=== PATIENT | male | born 1950 | race Caucasian/White ===

== ENCOUNTER 2016-12-11 19:31 | Emergency (ER) | payer OTHER | END 2016-12-11 22:16 | disposition home or self-care (01) | LOC: D.ER 19:31 | DX: J44.1 Chronic obstructive pulmonary disease with (acute) exacerbation (principal); F17.200 Nicotine dependence, unspecified, uncomplicated; J45.909 Unspecified asthma, uncomplicated ==

== ENCOUNTER 2016-12-30 07:19 | Emergency (ER) | payer OTHER ==
[2013-01-16 15:27] VITALS: BMI 18.5
[2016-12-30 08:02] LABS: BASOPHILS 0.2 % (0-2); EOSINOPHILS 0.2 % (0-7); HEMATOCRIT 43.1 % (42.0-54.0); HEMOGLOBIN 14.4 g/dL (13.5-17.5); IMMATURE GRANULOCYTES 0.2 % (0-5); LYMPHOCYTES 6.2 % (15-50); MCH 32.1 pg (26.0-34.0); MCHC 33.4 g/dL (31.0-37.0); NEUTROPHILS 89.2 % (40-80); RBC 4.49 10x6/uL (4.20-6.10); RDW 13.3 % (11.5-14.5); WBC 10.3 10x3/uL (4.8-10.8)
[2016-12-30 08:05] LABS: PLATELET COUNT 226 10x3/uL (130-400)
[2016-12-30 08:15] LABS: ALBUMIN 3.4 g/dL (3.4-5.0); ALKALINE PHOSPHATASE 97 U/L (46-116); ALT (SGPT) 37 U/L (10-68); CALC OSMOLALITY 285 mosm/kg (275-300); CARBON DIOXIDE 35.7 mmol/L (21.0-32.0); CHLORIDE - SERUM 100 mmol/L (98-107); CREATININE - SERUM 0.6 mg/dL (0.6-1.3); GLUCOSE 255 mg/dL (74-106); POTASSIUM - SERUM 4.2 mmol/L (3.5-5.1); PROTEIN - SERUM 6.1 g/dL (6.4-8.2); SODIUM 138 mmol/L (136-145); UREA NITROGEN 14 mg/dL (7-18); eGFR NON AFRICAN AMERICAN > 90 mL/min (90-120)
== END 2016-12-30 15:50 | disposition short-term general hospital (02) ==
LOC: D.ER 07:19
PROVIDERS: Family Medicine
DX: J44.1 Chronic obstructive pulmonary disease with (acute) exacerbation (principal); R09.02 Hypoxemia; J96.00 Acute respiratory failure, unspecified whether with hypoxia or hypercapnia; I44.7 Left bundle-branch block, unspecified

== ENCOUNTER 2017-01-08 10:18 | Emergency (ER) | payer OTHER ==
[2013-01-16 15:27] VITALS: BMI 18.5
[2017-01-08 11:07] LABS: BASOPHILS 0.1 % (0-2); EOSINOPHILS 1.2 % (0-7); HEMATOCRIT 40.6 % (42.0-54.0); HEMOGLOBIN 13.7 g/dL (13.5-17.5); IMMATURE GRANULOCYTES 0.4 % (0-5); LYMPHOCYTES 10.3 % (15-50); MCH 32.4 pg (26.0-34.0); MCHC 33.7 g/dL (31.0-37.0); MONOCYTES 10.3 % (2-11); NEUTROPHILS 77.7 % (40-80); PLATELET COUNT 237 10x3/uL (130-400); RBC 4.23 10x6/uL (4.20-6.10); RDW 12.5 % (11.5-14.5); WBC 7.5 10x3/uL (4.8-10.8)
[2017-01-08 11:26] LABS: ALBUMIN 3.1 g/dL (3.4-5.0); ALKALINE PHOSPHATASE 92 U/L (46-116); ALT (SGPT) 34 U/L (10-68); BILIRUBIN - TOTAL 0.72 mg/dL (0.2-1.3); CALC OSMOLALITY 282 mosm/kg (275-300); CALCIUM 8.7 mg/dL (8.5-10.1); CARBON DIOXIDE 37.9 mmol/L (21.0-32.0); CHLORIDE - SERUM 96 mmol/L (98-107); CREATININE - SERUM 0.6 mg/dL (0.6-1.3); POTASSIUM - SERUM 4.4 mmol/L (3.5-5.1); PRO BNP 341 pg/mL (0-125); PROTEIN - SERUM 5.9 g/dL (6.4-8.2); SODIUM 133 mmol/L (136-145); TROPONIN-I 0.052 ng/mL (0.000-0.060); UREA NITROGEN 11 mg/dL (7-18); eGFR NON AFRICAN AMERICAN > 90 mL/min (90-120)
[2017-01-08 11:32] LABS: GLUCOSE 420 mg/dL (74-106)
== END 2017-01-08 14:15 | disposition home or self-care (01) ==
LOC: D.ER 10:18
PROVIDERS: Emergency Medicine
DX: J44.1 Chronic obstructive pulmonary disease with (acute) exacerbation (principal); F17.200 Nicotine dependence, unspecified, uncomplicated

== ENCOUNTER 2017-01-15 09:42 | Inpatient (IN) | payer MEDICARE ==
[2017-01-15 10:38] LABS: BASOPHILS 0.1 % (0-2); EOSINOPHILS 0.5 % (0-7); HEMATOCRIT 38.7 % (42.0-54.0); HEMOGLOBIN 13.4 g/dL (13.5-17.5); IMMATURE GRANULOCYTES 0.2 % (0-5); LYMPHOCYTES 6.4 % (15-50); MCH 32.8 pg (26.0-34.0); MCHC 34.6 g/dL (31.0-37.0); MCV 94.9 fL (80.0-100.0); MEAN PLATELET VOLUME 8.9 fL (7.4-10.4); MONOCYTES 7.7 % (2-11); NEUTROPHILS 85.1 % (40-80); PLATELET COUNT 261 10x3/uL (130-400); RBC 4.08 10x6/uL (4.20-6.10); RDW 12.8 % (11.5-14.5); WBC 9.1 10x3/uL (4.8-10.8)
[2017-01-15 10:46] LABS: ALBUMIN 2.8 g/dL (3.4-5.0); ALKALINE PHOSPHATASE 77 U/L (46-116); ALT (SGPT) 30 U/L (10-68); BILIRUBIN - TOTAL 0.73 mg/dL (0.2-1.3); CALC OSMOLALITY 286 mosm/kg (275-300); CALCIUM 8.6 mg/dL (8.5-10.1); CARBON DIOXIDE 36.2 mmol/L (21.0-32.0); CHLORIDE - SERUM 98 mmol/L (98-107); CREATININE - SERUM 0.6 mg/dL (0.6-1.3); POTASSIUM - SERUM 4.2 mmol/L (3.5-5.1); PROTEIN - SERUM 5.4 g/dL (6.4-8.2); SODIUM 136 mmol/L (136-145); UREA NITROGEN 12 mg/dL (7-18); eGFR NON AFRICAN AMERICAN > 90 mL/min (90-120)
[2017-01-15 10:52] LABS: GLUCOSE 361 mg/dL (74-106)
[2017-01-15 12:06] LABS: APPEARANCE CLEAR (CLEAR); BILIRUBIN NEGATIVE (NEGATIVE); COLOR YELLOW (YELLOW); GLUCOSE 1000 mg/dL (NEGATIVE); KETONE NEGATIVE (NEGATIVE); LEUKOCYTE ESTERASE NEGATIVE (NEGATIVE); NITRITE NEGATIVE (NEGATIVE); PROTEIN NEGATIVE (NEGATIVE); SPECIFIC GRAVITY 1.005 (1.005-1.020); UROBILINOGEN NORMAL (NORMAL)
[2017-01-15 12:43] LABS: UDS - AMPHET NEGATIVE QUAL (NEGATIVE); UDS - BARB NEGATIVE QUAL (NEGATIVE); UDS - BENZO NEGATIVE QUAL (NEGATIVE); UDS - COCAINE NEGATIVE QUAL (NEGATIVE); UDS - METH NEGATIVE QUAL (NEGATIVE); UDS - OPIATE NEGATIVE QUAL (NEGATIVE); UDS - PCP NEGATIVE QUAL (NEGATIVE); UDS - THC NEGATIVE QUAL (NEGATIVE)
[2017-01-15 19:30] VITALS: BP 155/60
[2017-01-15 20:06] VITALS: BP 155/60; BMI 19.5
[2017-01-15] MEDS ORDERED: PROVENTIL/2.5 MG/3 M INH (20:47)
[2017-01-15] MEDS ORDERED: HUMULIN R100 U/ML SC (20:49)
[2017-01-15] MEDS ORDERED: TRAZODONE (20:52)
[2017-01-15] MEDS ORDERED: [UNRECOGNIZED DRUG - OTHER] (20:56)
[2017-01-15] MEDS ORDERED: IBUPROFEN (20:56)
--- NOTE | 2017-01-15 21:22 | NUR ---
PATIENT ADMITTED FROM OUR ER, HE LIVES ALONE AT [facility]. HE HAS A HX OF SCHIZOPHRENIA, HAS SMOKED FOR MANY YEARS, HE IS A CHRONIC COPDER. HE TOLD ER NURSE HE WANTED TO KILL HIMSELF, BUT HAS NO PLAN. ON ASSESSMENT HE SAID HE DOES NOT FEEL LIKE HURTING HIMSELF AND HE WANTS TO GO HOME BY WEDNESDAY. PATIENT IS AMBULATORY, BUT SOB ON EXERTION. HE PRESENTED WITH LOW O2 SAT AND WE PUT 2 L/M PER N/C ON NOW SAT INCREASED TO 95%.
[2017-01-16 09:59] VITALS: BP 115/52
[2017-01-16 11:02] LABS: CHOL - HDL RATIO 2.6 ratio (2.3-4.9); LDL-HDL RATIO 1.4 ratio (1.5-3.5)
--- NOTE | 2017-01-16 13:00 | NUR ---
ALERT AND ORIENTED TIMES THREE, PATIENT SIGNED CONSENT FORM THIS AM, HANDS SHAKING AND BODY TWITCHING, GAVE VERBAL CONSENT FOR REMAINED OF FORMS. COOPERATIVE WITH CARE, WEARING O2 AT 2LPM, DOES TAKE IT OFF AT TIMES WITH NO RESPIRATORY DISTRESS ASSESSED. AMBULATES TO DINING ROOM FOR MEALS. NO SUICIDIAL IDEATIONS. " I BROUGHT MYSELF HERE, I KNOW WHERE I'M" ISOLATES ON SOFA. SAFETY MAINTAINED. CONTRACTED FOR NO SELF HARM. CONTINUE PLAN OF CARE.
[2017-01-16 13:29] VITALS: Wt 63.5 kg
[2017-01-16 19:30] VITALS: BP 126/68
--- NOTE | 2017-01-16 21:00 | NUR ---
LYING ON SOFA WITH EYES CLOSED. SEE ASSESSMENT FLOW SHEET FOR DETAILS. O2 ON AT 2 L/NC NO RESP DISTRESS NOTED. WILL CONTINUE PLAN OF CARE.
--- NOTE | 2017-01-17 06:48 | PSY ---
PATIENT NAME:SATINDER GAMEZ MEDICAL RECORD: [id number] : 48 LOCATION:[facility] ADMISSION DATE: 01/15/17 ACCOUNT: [id number] PSYCHIATRIC EVALUATION DATE OF EVALUATION: 01/16/17 IDENTIFYING DATA: This is the first halfway admission and evidently one of numerous lifetime psychiatric contacts for this 66-year-old white male. HISTORY OF PRESENT ILLNESS: This patient was referred to [facility] because there was no availability at the [place] system. The patient is normally followed through the [facility] in [place]. However, the patient carries a previous diagnosis of schizophrenia. He has been noncompliant in terms of taking his medications over the years. Evidently, he is a frequent visitor to the local emergency departments and frequently will claim to be suicidal. The patient has a long history of COPD. He has, for many years, been a 2 to 9-exqk-o-day smoker. He has been seen at [facility] several years ago for gastrointestinal issues as well as his chronic lung disease. Because of reported suicidal statements at the time of evaluation in the Emergency Department, the patient was admitted. At the time of admission, the patient did have a decreased oxygen saturation as well. PAST MEDICAL HISTORY: Significant for chronic obstructive pulmonary disease. The patient has, as mentioned, received a previous diagnosis of schizophrenia. He is very reluctant to continue with followup ____ and is very poor historian on his frequent ER visits. FAMILY HISTORY: Noncontributory. SOCIAL HISTORY: There are no substance abuse issues that are noted. Evidently, no family that is immediately involved with his care. The patient is a and is followed through the [place] system. ALLERGIES: No listed allergies. MENTAL STATUS: On exam, the patient is reclusive. Mood is euthymic. Affect is very constricted. Speech is low in volume. The patient simply asks when he can leave the hospital. Content of thought is positive for nonspecific paranoid ideation. On sensorium testing, the patient is aware that he is in the hospital. He is confused about the date; he thinks the month is November, he is not sure about the year. Remote, intermediate and short-term recall all do show some impairment, although the patient is very poorly cooperative with mental status exam. Additional medical history indicates the patient does indeed have insulin-dependent diabetes, otherwise no other ongoing medical issues. DIAGNOSTIC IMPRESSION: AXIS I: Schizophrenia, chronic undifferentiated type. AXIS II: No diagnosis. AXIS III: Chronic obstructive pulmonary disease, diabetes. AXIS IV: Severe. AXIS V: 34. PLAN: 1. The patient is admitted for further evaluation from a medical and psychiatric standpoint. 2. Diet and activities as tolerated. 3. Medication adjustment as indicated. TRANSINT:[id number] Voice Confirmation ID: [id number] DOCUMENT ID: [id number] VIJI BRISCOE III, MD at 0648 CC: [id number] DICTATION DATE: 01/16/17 1450 FREIGHT SALES BROKER: 01/16/17 1519 ADM IN [facility] [address] [id number]
[2017-01-17 07:00] VITALS: BP 110/59
--- NOTE | 2017-01-17 17:58 | NUR ---
PT WAS GIVEN AN ATIVAN 0.5MG PO AT 10:30AM DUE TO GETTING NERVOUS AND ASKING FOR HIS RESPERIDAL MEDICATION. WILL BE MONITORING HIS COMFORT LEVEL THIS SHIFT. HE WAS GIVEN HIS RESPERIDAL MEDICATION WHEN PHARMACY BROUGHT IT TO THE UNIT. DR. JACKSON ROUNDED THIS AFTERNOON. NEW ORDER RECEIVED FOR GLUCOPHAGE 1000MG PO BID DUE TO INCREASED BLOOD SUGAR LEVELS.
--- NOTE | 2017-01-17 18:05 | NUR ---
Patient in dayroom, easily aggitated by other patients asked for ativan. He was holding his head. He is oriented x4 but his speech is garbled and hard to understand. Patient has calmed down after medication and is resting quietly on couch. Continue to monitor. continue plan of care.
[2017-01-17 19:30] VITALS: BP 90/37
--- NOTE | 2017-01-17 21:39 | NUR ---
RECEIVED IN DAYROOM. LAYING ON SOFA WITH EYES CLOSED. RESPONDS TO VOICE. CALM AND COOPERATIVE WITH CARE AND ASSESSMENTS. ALERT AND ORIENTED X4. DENIES THOUGHT OF SELF HARM AT THIS TIME. ENCOURAGE TO EXPRESS NEEDS. CONTINUES TO REST ON SOFA. CONTINUE PLAN OF CARE
[2017-01-18 07:00] VITALS: BP 108/53
--- NOTE | 2017-01-18 09:09 | PN ---
PATIENT:SATINDER GAMEZ MEDICAL RECORD: [id number] LOCATION:[facility] ADMISSION DATE: 01/15/17 PROGRESS NOTE DATE OF SERVICE: 01/17/2017 SUBJECTIVE: No new complaint. OBJECTIVE: The patient has continued to ask when he can be discharged. He is passively cooperative. On exam, mood is for the most part euthymic. Affect is constricted. Speech is terse. Content of thought focuses primarily on somatic concerns. Sensorium shows no change. ASSESSMENT: No change in diagnosis. PLAN: 1. Continue all current medications. 2. Continue supportive therapy. TRANSINT:[id number] Voice Confirmation ID: [id number] DOCUMENT ID: [id number] VIJI BRISCOE III, MD at 0909 CC: [id number] DICTATION DATE: 01/17/172018 WASTE AND BATTING WASTE CHOPPER: 01/17/172038 ADM IN [facility] [address] [id number]
--- NOTE | 2017-01-18 16:03 | NUR ---
B.) Received this am alert and oriented times 4. I.) Administer medication and monitor compliance. Monitor for any suicidial ideation. Assess for any change in mood or signs of depression. Encourage group participation and verbalization of feelings. Monitor safety. R.) Compliant with medications, calm and cooperative with care. Isolates and lays on sofa, observed group with minimal participation. Patient on oxygen at 3lpm, fatigues easily and likes to lay down. Verbalized no suicidial ideations, denies any stating. " I did'nt have any to begin with." Does cooperate with unit milieu and sits with others at meal time. Safety maintained. P.) Continue plan of care.
--- NOTE | 2017-01-18 19:47 | NUR ---
RECEIVED IN BEDROOM. LAYING IN BED WITH EYES CLOSED. RESPONDS TO VOICE. ALERT AND ORIENTED. CALM AND COOPERATIVE WITH CARE AND ASSESSMENTS. DENIES THOUGHTS OF SELF HARM. ENCOURAGE TO EXPRESS NEEDS. ENCOURAGE TO LEAVE HIS O2 IN PLACE. CONTINUES TO REST IN BED EYES CLOSED. CONTINUE PLAN OF CARE
[2017-01-19 07:00] VITALS: BP 128/68
[2017-01-19 08:00] VITALS: BP 128/68
--- NOTE | 2017-01-19 09:00 | NUR ---
ALERT AND ORIENTED TIMES THREE, OXYGEN IN PLACE. DENIES ANY SUICIDIAL IDEATIONS. STATES HE NEVER MADE SUCH STATEMENTS, PATIENT STATES READINESS TO RETURN HOME, STATES YES TO QUESTION OF FEELING HOPEFUL AND NO HE IS NOT DEPRESSED. VERBALIZED UNDERSTANDING OF PENDING DISCHARGE FOR TODAY. COMPLIANT WITH CARE. SAFETY MAINTAINED.
[2017-01-19 09:17] LABS: FOLATE (FOLIC ACID) - SERUM >20.0 ng/mL (>3.0); VITAMIN D 25 HYDROXY 46.9 ng/mL (30.0-100.0)
--- NOTE | 2017-01-19 11:01 | PN ---
PATIENT:SATINDER GAMEZ MEDICAL RECORD: [id number] LOCATION:[facility] ADMISSION DATE: 01/15/17 PROGRESS NOTE DATE OF SERVICE: 01/18/2017 SUBJECTIVE: No new complaint. OBJECTIVE: The patient continues to have significant breathing difficulty. He is receiving regular breathing treatments per respiratory therapy. He is passively cooperative. On exam, mood is somewhat dysphoric. Affect is constricted. Speech is very low in volume and at times difficult to understand. Content of thought seems positive for some nonspecific paranoid ideation, but the patient does not elaborate. Sensorium shows no change and the patient remains oriented to person, place, month and year. ASSESSMENT: No change in diagnosis. PLAN: 1. Continue current treatment plan. 2. Continue supportive therapy. TRANSINT:[id number] Voice Confirmation ID: [id number] DOCUMENT ID: [id number] VIJI BRISCOE III, MD at 1101 CC: [id number] DICTATION DATE: 01/18/17 1033 ESL TEACHER: 01/18/17 1548 ADM IN [id number] [place] [address]
[2017-01-19] MEDS ORDERED: RISPERDAL SOL1 MG/ML PO (11:07)
[2017-01-19] MEDS ORDERED: GLUCOPHAGE500 MG PO (11:08)
--- NOTE | 2017-01-19 11:45 | NUR ---
PATIENT TRANSPORATION HERE TO PICK HIM UP EXPLAINED TO PATIENT THAT HE WILL HAVE HOSPICE SET UP AT HOME TO CHECK ON HIM AND WILL BE THERE WITH HIS OXYGEN SET UP. PATIENT ANXIOUS THINGKING HE WILL NOT HAVE OXYGEN AT HOME AND TRANSPORTATION DOES NOT HAVE OXYGEN WITH THEM, TAUGHT ON SLOW DEEP BREATHS AND PURSE LIP BREATHING TO RELAX. RELAXED AND DISCHARGED HOME.
--- NOTE | 2017-01-19 12:11 | NUR ---
Discharge medications called to [facility] to pharmacist Eliza, medications will be delivered to patient.
--- NOTE | 2017-01-20 10:37 | DS ---
PATIENT:SATINDER GAMEZ :48 MEDICAL RECORD: [id number] DISCHARGE SUMMARY ADMISSION DATE: 01/15/17 DISCHARGE DATE: 01/19/17 DATE OF ADMISSION: 01/15/2017. DATE OF DISCHARGE: 01/19/2017. HISTORY OF PRESENT ILLNESS: A 66-year-old white male with a long history of schizophrenia. The patient was seen at a local Emergency Department and stated that he was suicidal. He has a history of being noncompliant with his medication. Because of his suicidal statements, he was admitted. The patient does have chronic obstructive pulmonary disease and is chronically debilitated because of this. For further details, please see previously dictated history. COURSE IN THE HOSPITAL: The patient was seen in consultation by Dr. Whyte. She of course noted the presence of COPD. She also noted the presence of diabetes, which at the time was not controlled and hypertension as well as past history of CVA. The patient was started on routine doses of Risperdal 1 mg b.i.d. for his psychotic symptoms. He was seen by respiratory therapy given updraft treatments, and continued on bronchodilators, he was also maintained on metformin 1000 mg twice a day as well as p.r.n. insulin. The patient showed a good resolution of his suicidality by the time of discharge. He was no longer making any suicidal statements. He has to follow up through the [facility] and will be referred back there. FINAL DIAGNOSES: AXIS I: Schizophrenia -- chronic nephrogenic type, secondary depression. AXIS II: No diagnosis. AXIS III: Hypertension, chronic obstructive pulmonary disease, diabetes, benign prostatic hypertrophy. AXIS IV: Moderate. AXIS V: 40. PLAN: 1. The patient is discharged on current medication. 2. Diabetic diet. 3. Follow up through the [facility]. TRANSINT:[id number] Voice Confirmation ID: [id number] DOCUMENT ID: [id number] VIJI BRISCOE III, MD at 1037 CC: [id number] DICTATION DATE: 01/19/17 1111 AIRCRAFT SYSTEMS TECHNICIAN: 01/20/17 0147 DIS IN 01/19/17 [place] [address]
== END 2017-01-19 12:05 | disposition home health service (06) | DRG 885 ==
LOC: D.ER 09:42 → D.PSYCH 19:25
PROVIDERS: Emergency Medicine; ADMIT Psychiatry & Neurology Psychiatry
DX: F20.89 Other schizophrenia (principal); R45.851 Suicidal ideations; F32.9 Major depressive disorder, single episode, unspecified; I10 Essential (primary) hypertension; E11.9 Type 2 diabetes mellitus without complications; Z79.4 Long term (current) use of insulin; J44.9 Chronic obstructive pulmonary disease, unspecified; N40.0 Benign prostatic hyperplasia without lower urinary tract symptoms; I69.922 Dysarthria following unspecified cerebrovascular disease; F17.200 Nicotine dependence, unspecified, uncomplicated

== ENCOUNTER 2017-02-14 17:12 | Emergency (ER) | payer MEDICARE ==
[2017-01-16 13:29] VITALS: BMI 19.5
[~2017-02-14 17:12] MED LIST: GLUCOPHAGE500 MG PO; HUMULIN R100 U/ML SC; IBUPROFEN; PROVENTIL/2.5 MG/3 M INH; RISPERDAL SOL1 MG/ML PO; TRAZODONE; [UNRECOGNIZED DRUG - OTHER]
[2017-02-14 18:05] LABS: BASOPHILS 0.3 % (0-2); EOSINOPHILS 0.3 % (0-7); HEMATOCRIT 40.8 % (42.0-54.0); HEMOGLOBIN 14.2 g/dL (13.5-17.5); IMMATURE GRANULOCYTES 0.3 % (0-5); MCH 32.1 pg (26.0-34.0); MCHC 34.8 g/dL (31.0-37.0); MCV 92.1 fL (80.0-100.0); MEAN PLATELET VOLUME 9.1 fL (7.4-10.4); MONOCYTES 5.7 % (2-11); NEUTROPHILS 84.4 % (40-80); PLATELET COUNT 201 10x3/uL (130-400); RBC 4.43 10x6/uL (4.20-6.10); RDW 12.3 % (11.5-14.5); WBC 7.5 10x3/uL (4.8-10.8)
[2017-02-14 18:42] LABS: ALBUMIN 3.2 g/dL (3.4-5.0); ALKALINE PHOSPHATASE 86 U/L (46-116); ALT (SGPT) 19 U/L (10-68); BILIRUBIN - TOTAL 0.67 mg/dL (0.2-1.3); CALC OSMOLALITY 273 mosm/kg (275-300); CALCIUM 8.6 mg/dL (8.5-10.1); CARBON DIOXIDE 34.8 mmol/L (21.0-32.0); CHLORIDE - SERUM 95 mmol/L (98-107); CREATININE - SERUM 0.8 mg/dL (0.6-1.3); PROTEIN - SERUM 6.1 g/dL (6.4-8.2); SODIUM 132 mmol/L (136-145); UREA NITROGEN 10 mg/dL (7-18); eGFR NON AFRICAN AMERICAN > 90 mL/min (90-120)
[2017-02-14 18:44] LABS: GLUCOSE 284 mg/dL (74-106)
[2017-02-14 18:56] LABS: CKMB 3.9 U/L (0.0-3.6); CREATINE KINASE 110 UL (21-232); TROPONIN-I 0.047 ng/mL (0.000-0.060)
== END 2017-02-14 22:50 | disposition home or self-care (01) ==
LOC: D.ER 17:12
PROVIDERS: Family Medicine
DX: J44.1 Chronic obstructive pulmonary disease with (acute) exacerbation (principal); R06.00 Dyspnea, unspecified; F17.200 Nicotine dependence, unspecified, uncomplicated